=== PATIENT | male | born 1985 | race Caucasian/White ===

== ENCOUNTER 2017-05-31 18:46 | Emergency (ER) | payer OTHER ==
[~2017-05-31] VITALS: Ht 175.3 cm; Wt 93.0 kg
[2017-05-31 18:53] VITALS: BP 131/86
== END 2017-05-31 19:36 | disposition left against medical advice (07) ==
LOC: ER 18:46
DX: K92.2 Gastrointestinal hemorrhage, unspecified (principal); F10.99 Alcohol use, unspecified with unspecified alcohol-induced disorder; F17.210 Nicotine dependence, cigarettes, uncomplicated; Z53.21 Procedure and treatment not carried out due to patient leaving prior to being seen by health care provider; Z90.89 Acquired absence of other organs